=== PATIENT | male | born 1980 | race Caucasian/White ===

== ENCOUNTER 2017-11-30 09:18 | Inpatient (IN) | payer OTHER ==
[~2017-11-30] VITALS: Ht 162.6 cm; Wt 90.7 kg
[~2017-11-30 09:18] MED LIST: NAPROSYN500 MG PO; TRAMADOL 50 MG50 MG PO
[2017-11-30 09:28] VITALS: BP 135/95
[2017-11-30 09:59] LABS: HEMATOCRIT 43.8 % (42.0-52.0); HEMOGLOBIN 14.9 gm/dL (14.0-18.0); MCH 29.3 pg (26.0-34.0); MCV 86.1 fL (80.0-100.0); MPV 8.3 fl. (7.2-11.1); RBC 5.08 mil/uL (4.50-6.00); RDW-CV 12.9 % (10.5-14.5); WBC 11.8 thou/uL (4.0-11.0)
[2017-11-30 10:06] LABS: CALCIUM 8.8 mg/dL (8.5-10.1); POTASSIUM 4.5 mmol/L (3.5-5.1)
[2017-11-30 10:09] LABS: URIC ACID* 6.6 mg/dL (2.6-7.2)
[2017-11-30 12:27] VITALS: BP 143/98
[2017-11-30 13:00] VITALS: BP 143/96
[2017-11-30 22:35] VITALS: BP 134/92
[2017-12-01 04:16] LABS: ABSOLUTE EOSINOPHILS 0.2 thou/uL (0.0-0.7); ABSOLUTE LYMPHOCYTES 1.7 thou/uL (0.8-5.3); ABSOLUTE MONOCYTES 0.9 thou/uL (0.0-1.2); BASOPHILS 0.4 %; EOSINOPHILS 2.2 %; HEMATOCRIT 39.1 % (42.0-52.0); HEMOGLOBIN 13.5 gm/dL (14.0-18.0); LYMPHOCYTES 18.9 %; MCH 29.9 pg (26.0-34.0); MCHC 34.4 g/dL (28.0-37.0); MCV 86.8 fL (80.0-100.0); MONOCYTES 10.2 %; MPV 8.7 fl. (7.2-11.1); NUCLEATED RBCS 0 /100WBC; PLATELET COUNT* 216 thou/uL (150-400); POLYS 68.3 %; RDW-CV 12.6 % (10.5-14.5); WBC 8.8 thou/uL (4.0-11.0)
[2017-12-01 04:32] LABS: CALCIUM 8.2 mg/dL (8.5-10.1); CREATININE 0.9 mg/dL (0.6-1.3); POTASSIUM 4.3 mmol/L (3.5-5.1); TOTAL BILIRUBIN 0.5 mg/dL (<0.1-1.0); TOTAL PROTEIN 5.7 g/dL (6.4-8.2)
[2017-12-01 07:45] VITALS: BP 146/97
[2017-12-01 16:15] VITALS: BP 147/91
[2017-12-02 00:06] VITALS: BP 141/93
[2017-12-02 04:12] LABS: ABSOLUTE EOSINOPHILS 0.2 thou/uL (0.0-0.7); ABSOLUTE LYMPHOCYTES 1.9 thou/uL (0.8-5.3); ABSOLUTE MONOCYTES 0.7 thou/uL (0.0-1.2); ABSOLUTE NEUTROPHILS 4.2 thou/uL (1.6-8.1); BASOPHILS 0.6 %; EOSINOPHILS 2.7 %; HEMOGLOBIN 13.2 gm/dL (14.0-18.0); MCH 29.4 pg (26.0-34.0); MCHC 33.9 g/dL (28.0-37.0); MCV 86.8 fL (80.0-100.0); MPV 8.7 fl. (7.2-11.1); NUCLEATED RBCS 0 /100WBC; PLATELET COUNT* 227 thou/uL (150-400); POLYS 59.7 %; RDW-CV 12.5 % (10.5-14.5)
[2017-12-02 04:33] LABS: POTASSIUM 4.3 mmol/L (3.5-5.1)
[2017-12-02 08:20] VITALS: BP 147/99
[2017-12-02 16:00] VITALS: BP 154/101
[2017-12-03] VITALS: BP 139/88
[2017-12-03 07:45] VITALS: BP 139/97
--- NOTE | 2017-12-03 08:09 | CON ---
[address] [address] CONSULTATION Name: LYDIARYAN SIMEON Room: [address] IN [facility].R.#: [id number] Admission: 11/30/17 Attend Phys: Royer Mosley Discharge: Date of : 76 Report #: [id number] THIS REPORT FOR: //name// CC: [facility] physician/PCP Ronnie Moreno DATE OF SERVICE: 12/02/2017 ATTENDING PHYSICIAN: Ronnie Moreno DO REASON FOR EVALUATION: Inflammatory process involving the right wrist, possible septic arthritis versus gout. HISTORY OF PRESENT ILLNESS: Chart reviewed, patient examined. A 37-year-old gentleman with known history of gout and some asthma who awoke from sleep, noted some right wrist pain. Denied any antecedent injury. It progressed over the course of the next 24 hours, it became very significant. In spite of his efforts was not getting any relief. It is not clear if he had any systemic illness. Denies any fevers or chills. Appetite was somewhat diminished. No pulmonary or gastrointestinal related complaints. He did note similar type episodes involving his left wrist. It was otherwise undiagnosed. Does have confirmed callus involving his left foot. He mentioned right shoulder as well and was empirically started on colchicine as well as antimicrobials. Aspiration of the joint showed many white cells, many red cells, no organisms, no growth thus far. Crystal analysis was unrevealing as well. He has marginally improved over the course of the last 48 hours. ALLERGIES: None. CURRENT MEDICATIONS: Include clindamycin, colchicine, hydrocodone, promethazine, p.r.n. analgesics . PAST MEDICAL HISTORY: Noted for gout and the asthma. SOCIAL HISTORY: Does smoke cigarettes, half packs, last 20 years. No illicit drug use. No ethanol use. FAMILY HISTORY: Noncontributory. REVIEW OF SYSTEMS: As above. PHYSICAL EXAMINATION: GENERAL: He is otherwise pleasant, alert, in [id number] distress secondary to the right wrist pain. He is elevating on a pillow. VITAL SIGNS: Temperature max 99.3, more recently 97.8, pulse 68, respirations 16, blood pressure 147/99[place] [address] CONSULTATION Name: RYAN FREEMAN Room: [address] IN [facility]#: [id number] Admission: 11/30/17 Attend Phys: Royer Mosley Discharge: Date of : 76 Report #: [id number] SKIN: Warm, dry, no rashes. HEENT: Unremarkable. NECK: Supple. LUNGS: Otherwise, clear breath sounds. HEART: Regular. ABDOMEN: Soft, nontender, nondistended. EXTREMITIES: Right wrist, mild to moderate degree of surface inflammation noted. He does have pain associated with the manipulation of the joint. GENITOURINARY: Deferred. RECTAL: Deferred. LABORATORY DATA: Blood cultures sterile thus far. CRP of 70.6, which is elevated. Electrolytes: Sodium 135, potassium 4.5, chloride 99, bicarbonate is 30, BUN and creatinine 11 and 1.0, glucose of 146. Estimated GFR of 83. CBC: White count of 11.8, H and H 14.9 and 43.8, platelets of 254. Sed rate of 6. Lactic acid of 0.7. X-ray of the wrist showed no acute osseous abnormality. Cultures described above. No growth thus far. ASSESSMENT: Inflammatory process involving the right wrist. We will continue empiric antimicrobial therapy. I think the evidence is mixed at best in terms of possible septic etiology. There is no trauma; however, worried about some sort of arthritis, otherwise noninfectious. Clearly, there were lot of white cells, although the analysis was pending in certain multiple other sites too and may need evaluation for rheumatological primary cause. <ELECTRONICALLY SIGNED> By: Ryan Escalona MD 12/03/17 [id number] Escalona MD /nt
[2017-12-03] MEDS ORDERED: COLCHICINE0.6 M1 PO (11:24)
[2017-12-03] MEDS ORDERED: NORCO 5-325 TA1 EACH PO (11:26)
[2017-12-03 11:27] VITALS: BP 139/97
[2017-12-03] MEDS ORDERED: MINOCIN100 MG PO (11:27)
== END 2017-12-03 12:07 | disposition home or self-care (01) | DRG 550 ==
LOC: M.ERS 09:18 → M.TBA-ER 11:52 → M.3W 11:52
PROVIDERS: Emergency Medicine Emergency Medical Services; ADMIT Internal Medicine
PROC: 0R9N3ZZ Drainage of Right Wrist Joint, Percutaneous Approach (ICD-10-PCS; principal; 2017-11-30)
DX: M00.9 Pyogenic arthritis, unspecified (principal); M10.9 Gout, unspecified; J45.909 Unspecified asthma, uncomplicated; F17.210 Nicotine dependence, cigarettes, uncomplicated; R73.9 Hyperglycemia, unspecified; Z79.899 Other long term (current) drug therapy

== ENCOUNTER 2020-06-29 10:17 | Emergency (ER) | payer OTHER ==
[~2020-06-29] VITALS: Ht 162.6 cm; Wt 93.0 kg
[~2020-06-29 10:17] MED LIST changes: +COLCHICINE0.6 M1 PO; +MINOCIN100 MG PO; +NORCO 5-325 TA1 EACH PO
[2020-06-29] MEDS ORDERED: PREDNISONE 20 M20 M1 PO (11:44)
[2020-06-29] MEDS ORDERED: ZPAK PO (11:44)
[2020-06-29 11:49] VITALS: BP 148/74
== END 2020-06-29 11:50 | disposition home or self-care (01) ==
LOC: M.ERS 10:17
DX: U07.1 COVID-19 (principal); J45.909 Unspecified asthma, uncomplicated